=== PATIENT | male | born 1995 | race Caucasian/White ===

== ENCOUNTER 2016-07-16 21:55 | Inpatient (IN) | payer MEDICAID ==
[~2016-07-16] VITALS: Ht 172.7 cm; Wt 90.3 kg
[2016-07-16 22:32] LABS: BASOPHILS % (AUTO) 0.2 % (0.0-2.0); EOSINOPHILS % (AUTO) 0.1 % (1.0-6.0); HEMATOCRIT 52.3 % (41-53); HEMOGLOBIN 17.7 g/dL (13.5-17.5); LYMPHOCYTES # (AUTO) 1.4 K/uL (1.0-4.8); LYMPHOCYTES % (AUTO) 11.9 % (22.0-44.0); MEAN CORPUSCULAR HEMOGLOBIN 29.4 pg (26.0-34.0); MEAN CORPUSCULAR HGB CONC 33.8 G/dL (31.0-37.0); MEAN CORPUSCULAR VOLUME 87 fL (80-100); MONOCYTES # (AUTO) 0.6 K/uL (0.1-1.0); NEUTROPHILS % (AUTO) 82.8 % (40.0-70.0); PLATELET COUNT (AUTO) 279 K/uL (150-450); RED BLOOD CELL COUNT(AUTO) 6.01 MIL/uL (4.50-5.90); RED CELL DISTRIBUTION WIDTH 12.6 % (11.5-14.5); WHITE BLOOD COUNT (AUTO) 12.1 K/uL (4.5-11.0)
[2016-07-16] MEDS ORDERED: SODIUM CHLORIDE 0.9% 1,000 ML IV ONE (22:45)
[2016-07-16] MEDS ORDERED: ONDANSETRON HCL 4 MG/2 ML VIAL IVP ONE (22:45)
[2016-07-16] MEDS ORDERED: PANTOPRAZOLE SODIUM 40 MG/VIAL IVP ONE (22:45)
[2016-07-16] MEDS ORDERED: DONNATAL/LIDOCAINE/MAALOX 55 ML BOTTLE PO ONE (22:45)
[2016-07-16 22:47] LABS: ANION GAP 17 mmol/L (8-16); CALCIUM, TOTAL 10.4 mg/dL (8.8-10.5); CARBON DIOXIDE 21 mmol/L (22-29); CHLORIDE 102 mmol/L (98-107); CREATININE 1.29 mg/dL (0.60-1.30); GLOMERULAR FILTR. RATE CALC > 60 mL/min (>60); POTASSIUM 3.5 mmol/L (3.5-5.1); SODIUM SERUM 140 mmol/L (136-145); UREA NITROGEN, BLOOD 14 mg/dL (7-18)
[2016-07-16 22:55] LABS: ALANINE AMINOTRANSFERASE 33 U/L (12-78); ALBUMIN 5.2 g/dL (3.4-5.0); ASPARTATE AMINOTRANSFERASE 22 U/L (15-37); BILIRUBIN,TOTAL 0.9 mg/dL (0.1-1.0); TOTAL PROTEIN, SERUM 8.8 g/dL (6.4-8.2)
[2016-07-16] MEDS ORDERED: LORazepam 2 MG/ML VIAL IVP ONE (23:15)
[2016-07-17] MEDS ORDERED: MORPHINE SULFATE 2 MG/ML SYRINGE IVP ONE (00:45)
[2016-07-17] MEDS ORDERED: METOCLOPRAMIDE HCL 5 MG/ML 2 ML VIAL IVP ONE (01:00)
[2016-07-17 01:22] LABS: APPEARANCE,URINE CLEAR (CLEAR); GLUCOSE, URINE (UA) NEGATIVE (NEGATIVE); KETONES,URINE >=80 mg/dL (NEGATIVE); LEUKOCYTE ESTERASE ,URINE NEGATIVE (NEGATIVE); OCCULT BLOOD,URINE NEGATIVE (NEGATIVE); PH,URINE 6.5 (5.0-8.0); PROTEIN,URINE SEE CONFIRM (NEGATIVE)
[2016-07-17 01:23] LABS: ADD UA MICROSCOPIC YES
[2016-07-17 01:31] LABS: SULFOSALICYLIC ACID,URINE 1+ (Negative)
[2016-07-17 01:33] LABS: SQUAMOUS EPITHELIAL CELL,UR Few /LPF (None Seen)
[2016-07-17 01:36] LABS: RBC,URINE None Seen /HPF (0-2)
[2016-07-17] MEDS ORDERED: PROMETHAZINE HCL 12.5 MG in SODIUM CHLORIDE 0.9% 50 ML IV ONE ×2 (01:45→04:15)
[2016-07-17] MEDS ORDERED: SODIUM CHLORIDE 0.9% 1,000 ML IV ONE (01:45)
[2016-07-17] MEDS ORDERED: IOVERSOL 350 MG/ML 100 ML VIAL ONE (01:58)
[2016-07-17] MEDS ORDERED: IOVERSOL 350 MG/ML 50 ML VIAL ONE (01:59)
[2016-07-17] MEDS ORDERED: SODIUM CHLORIDE 0.9% 100 ML ONE (01:59)
[2016-07-17] MEDS ORDERED: ACETAMINOPHEN 325 MG TABLET PO PRN (05:30)
[2016-07-17] MEDS ORDERED: IPRATROPIUM BROMIDE 0.5 MG/2.5 ML NEB SOLUTION NEB PRN (05:30)
[2016-07-17] MEDS ORDERED: BISACODYL 10 MG RECTAL RECTAL SUPPOSITORY PR PRN (05:30)
[2016-07-17] MEDS ORDERED: ALBUTEROL SULFATE 2.5 MG/0.5 ML NEB SOLUTION NEB PRN (05:30)
[2016-07-17] MEDS ORDERED: ZOLPIDEM TARTRATE 5 MG TABLET PO PRN (05:30)
[2016-07-17] MEDS ORDERED: MAGNESIUM HYDROXIDE SUSPENSION 30 ML UDCUP PO PRN (05:30)
[2016-07-17] MEDS ORDERED: OxyCODONE HCL/ACETAMINOPHEN 5-325 MG TABLET PO PRN (05:30)
[2016-07-17] MEDS: MORPHINE SULFATE 2 MG/ML SYRINGE IVP PRN ×4 (05:44→18:11)
[2016-07-17] MEDS: DEXTROSE 5%-0.45% SODIUM CHL 1,000 ML IV SCH ×2 (05:45→14:43)
[2016-07-17 05:57] VITALS: BP 158/104
[2016-07-17] MEDS: ONDANSETRON HCL 4 MG/2 ML VIAL IVP PRN ×2 (06:01→11:00)
[2016-07-17] MEDS ORDERED: INFLUENZA VIRUS VACCINE QVS 2016-17 (3YR+)/PF 60 MCG/0.5 ML SYRINGE IM ONE (06:30)
[2016-07-17] MEDS: CefTRIAXone 1 GM/DEXTROSE 50 ML IV SCH (08:12)
[2016-07-17] MEDS ORDERED: PANTOPRAZOLE SODIUM 40 MG/VIAL IVP SCH (09:00)
[2016-07-17 11:25] VITALS: BP 154/98
[2016-07-17] MEDS: PANTOPRAZOLE SODIUM 40 MG/VIAL IVP SCH ×2 (14:43→23:52)
[2016-07-17 15:21] VITALS: BP 122/61
[2016-07-17] MEDS: LORazepam 2 MG/ML VIAL IVP SCH ×2 (18:11→23:52)
[2016-07-17] MEDS: PROCHLORPERAZINE EDISYLATE 5 MG/ML 2 ML VIAL IVP PRN (18:12)
[2016-07-17 19:38] VITALS: BP 120/78
[2016-07-18 00:20] VITALS: BP 136/74
[2016-07-18] MEDS: MORPHINE SULFATE 2 MG/ML SYRINGE IVP PRN ×5 (00:26→13:38)
[2016-07-18] MEDS: ONDANSETRON HCL 4 MG/2 ML VIAL IVP PRN ×3 (00:27→13:37)
[2016-07-18] MEDS: DEXTROSE 5%-0.45% SODIUM CHL 1,000 ML IV SCH ×4 (03:23→18:48)
[2016-07-18 05:05] VITALS: BP 115/67
[2016-07-18 06:05] LABS: BASOPHILS # (AUTO) 0.03 K/uL (0.00-0.20); BASOPHILS % (AUTO) 0.3 % (0.0-2.0); EOSINOPHILS % (AUTO) 0.04 % (1.0-6.0); HEMATOCRIT 44.6 % (41-53); HEMOGLOBIN 15.2 g/dL (13.5-17.5); LYMPHOCYTES # (AUTO) 1.6 K/uL (1.0-4.8); LYMPHOCYTES % (AUTO) 13.1 % (22.0-44.0); MEAN CORPUSCULAR HEMOGLOBIN 29.7 pg (26.0-34.0); MEAN CORPUSCULAR HGB CONC 34.2 G/dL (31.0-37.0); MEAN CORPUSCULAR VOLUME 87 fL (80-100); MONOCYTES # (AUTO) 0.7 K/uL (0.1-1.0); MONOCYTES % (AUTO) 5.8 % (2.0-9.0); NEUTROPHILS % (AUTO) 80.8 % (40.0-70.0); PLATELET COUNT (AUTO) 244 K/uL (150-450); RED BLOOD CELL COUNT(AUTO) 5.13 MIL/uL (4.50-5.90); RED CELL DISTRIBUTION WIDTH 13.2 % (11.5-14.5); WHITE BLOOD COUNT (AUTO) 12.4 K/uL (4.5-11.0)
[2016-07-18] MEDS ORDERED: 0.9% SODIUM CHLORIDE 10 ML SYRINGE IVP PRN (06:30)
[2016-07-18 06:31] LABS: ALANINE AMINOTRANSFERASE 27 U/L (12-78); AMYLASE 66 U/L (25-115); ANION GAP 8 mmol/L (8-16); ASPARTATE AMINOTRANSFERASE 19 U/L (15-37); BILIRUBIN,TOTAL 0.8 mg/dL (0.1-1.0); CALCIUM, TOTAL 8.9 mg/dL (8.8-10.5); CARBON DIOXIDE 28 mmol/L (22-29); CHLORIDE 103 mmol/L (98-107); CREATININE 1.14 mg/dL (0.60-1.30); GLOMERULAR FILTR. RATE CALC > 60 mL/min (>60); PHOSPHORUS 3.5 mg/dL (2.5-4.9); POTASSIUM 3.7 mmol/L (3.5-5.1); SODIUM SERUM 139 mmol/L (136-145); UREA NITROGEN, BLOOD 10 mg/dL (7-18)
[2016-07-18] MEDS: LORazepam 2 MG/ML VIAL IVP SCH (08:10)
[2016-07-18 08:20] VITALS: BP 116/56
[2016-07-18] MEDS: CefTRIAXone 1 GM/DEXTROSE 50 ML IV SCH (08:30)
[2016-07-18] MEDS: PANTOPRAZOLE SODIUM 40 MG/VIAL IVP SCH ×2 (09:00→18:51)
[2016-07-18] MEDS: PROCHLORPERAZINE EDISYLATE 5 MG/ML 2 ML VIAL IVP PRN (11:02)
[2016-07-18 11:36] VITALS: BP 146/90
[2016-07-18 19:51] VITALS: BP 122/72
[2016-07-18 23:00] VITALS: BP 107/66
[2016-07-19] MEDS: DEXTROSE 5%-0.45% SODIUM CHL 1,000 ML IV SCH (02:46)
[2016-07-19 05:15] VITALS: BP 113/54
[2016-07-19] MEDS: CefTRIAXone 1 GM/DEXTROSE 50 ML IV SCH (06:24)
[2016-07-19 07:53] VITALS: BP 125/71
[2016-07-19] MEDS: ONDANSETRON HCL 4 MG/2 ML VIAL IVP PRN (08:13)
[2016-07-19] MEDS: PANTOPRAZOLE SODIUM 40 MG/VIAL IVP SCH (08:55)
[2016-07-19] MEDS: MORPHINE SULFATE 2 MG/ML SYRINGE IVP PRN (08:59)
[2016-07-19] MEDS ORDERED: SODIUM CHLORIDE 0.9% 100 ML ONE (09:59)
[2016-07-19] MEDS ORDERED: IOVERSOL 350 MG/ML 100 ML VIAL ONE (09:59)
[2016-07-19] MEDS ORDERED: BARIUM SULFATE 0.1% SUSPENSION 450 ML BOTTLE ONE (09:59)
== END 2016-07-19 10:18 | disposition left against medical advice (07) | DRG 247 ==
LOC: EDSEX 21:57 → EMS 21:57 → 6N 07-17 04:24
PROVIDERS: ADMIT Internal Medicine; ATTEND Internal Medicine
DX: K56.1 Intussusception (principal); N39.0 Urinary tract infection, site not specified; F12.10 Cannabis abuse, uncomplicated; R03.0 Elevated blood-pressure reading, without diagnosis of hypertension; G43.A0 Cyclical vomiting, in migraine, not intractable
CPT/HCPCS: 74177; 83735; 84100; 87086; 96361; 96365; 96366; 96375; 99285; C9113; J0696; J0780; J2060; J2270; J2405; J2550; J2765; J7030; J7050